=== PATIENT | female | born 1940 | race Caucasian/White ===

== ENCOUNTER 2018-03-02 16:34 | Outpatient (CLI) | payer MEDICARE ==
[2018-03-02 16:57] LABS: CREATININE 0.7 mg/dL (0.4-1.0)
== END 2018-03-02 16:35 | disposition home or self-care (01) ==
LOC: LAB 16:34
PROVIDERS: ATTEND Family Medicine
DX: R63.4 Abnormal weight loss (principal)
CPT/HCPCS: 36415; 82565